=== PATIENT | female | born 1965 | race Caucasian/White ===

== ENCOUNTER 2019-01-08 06:48 | Observation (INO) ==
[2019-01-08] MEDS ORDERED: ASPIRIN PO ONE (07:20)
[2019-01-08 07:30] LABS: BASO# 0.05 X1000 (0.0-0.2); BASO% 0.4 % (0.0-0.8); EOS# 0.38 X1000 (0.0-0.7); EOS% 3.1 % (0.0-10.0); HEMATOCRIT 41.2 % (37.0-47.0); HEMOGLOBIN 13.8 g/dL (12.0-16.0); IMM GRAN# 0.04 X1000 (0.0-0.04); IMM GRAN% 0.3 % (0.0-0.5); LYMPH# 1.86 X1000 (1.2-3.4); LYMPH% 15.3 % (20.5-51.1); MCH 30.7 PG (27-31); MCHC 33.5 g/dL (33-37); MCV 91.6 FL (81-99); MONO# 1.42 X1000 (0.11-0.59); MONO% 11.7 % (1.7-9.3); MPV 11.2 FL (7.4-10.4); NEUT# 8.42 X1000 (1.4-6.5); NEUT% 69.2 % (42.2-75.2); PLT 227 X1000 (130-400); RDW 12.9 % (11.5-14.5); WBC 12.17 X1000 (4.8-10.8)
[2019-01-08 07:47] LABS: INR 0.99; PROTIME 13.6 Seconds (11.0-16.0)
[2019-01-08 07:48] LABS: PTT 32.8 Seconds (22.3-41.8)
[2019-01-08 07:50] LABS: AGAP 12; ALBUMIN 4.3 g/dL (3.5-5.0); BUN 11 mg/dL (8-22); CALCIUM 9.2 mg/dL (8.8-10.2); CHLORIDE 104 mmol/L (98-107); COSMO 284; CREATININE 0.7 mg/dL (0.5-0.9); ESTIMATED GFR > 60; GLUCOSE 126 mg/dL (70-104); POTASSIUM 4.1 mmol/L (3.5-5.1); SODIUM 142 mmol/L (136-145); TCO2 26 mmol/L (25-35); TOTAL PROTEIN 7.3 g/dL (6.3-8.3)
[2019-01-08 07:51] LABS: ALKALINE PHOSPHATASE 152 U/L (32-104); CK PROFILE 91 U/L (24-173); GOT 19 U/L (10-30); GPT 14 U/L (10-36)
--- NOTE | 2019-01-08 08:00 | Diag Imaging Result Doc PS360 ---
EXAM: CHEST-2 VIEWS INDICATION: chest pain TECHNIQUE: 2 views COMPARISON: 11/11/2018 FINDINGS: The lungs are grossly clear. There is no discrete pleural fluid collection or pneumothorax. The cardiomediastinal silhouette and central vasculature are grossly unremarkable. IMPRESSION: No evidence of acute pathology by plain radiograph. Electronically signed by Myles Hernandez 01/08/2019 7:57 AM
[2019-01-08] MEDS ORDERED: NITROGLYCERIN SL ONE (09:00)
--- NOTE | 2019-01-08 09:06 | PROVIDER DOCUMENTATION ---
HPI-Chest Pain - General Chief Complaint: Chest Pain Stated Complaint: SOB / BACK PAIN Time Seen by Provider: 01/08/19 07:22 Source: patient Allergies/Adverse Reactions: Patient Allergies Allergy/AdvReac Type Severity Reaction Status Date / Time No Known Allergies Allergy Verified 11/11/18 12:52 Home Medications: Home Medication List Medication Instructions Recorded Confirmed Last Taken Type Buspirone HCl 300 mg PO DAILY 11/11/18 01/08/19 Unknown History Meloxicam [Mobic] 15 mg PO DAILY 11/11/18 01/08/19 Unknown History Aripiprazole 1 tab PO QAM 01/08/19 01/08/19 Unknown History Buspirone HCl 7.5 mg PO BID PRN PRN 01/08/19 01/08/19 Unknown History Omeprazole 20 mg PO DAILY 01/08/19 01/08/19 Unknown History Pramipexole [Mirapex] 1 mg PO QHS 01/08/19 01/08/19 Unknown History - History of Present Illness-CP Nature of Presenting Problem: 53 y/o WF c/o lt sided CP for the last 2 days that radiates to her back, neck and Lt shoulder. Pt also notes SOB and nausea with CP. Pt is a smoker and has [facility] family hx of heart disease. Location: reports: other (lt side of chest.) Chest Pain Radiation: reports: neck, shoulders, back Quality of Pain: reports: aching, pressure Severity in ED: mild Onset/Duration: 2 days ago Timing: still present Context/Activities at Onset: reports: light activity Modifying Factors: improves with: nothing Associated Symptoms: reports: nausea (palpitations), shortness of breath Nitro Today/Relief: 0.4 mg x 1 Aspirin Treatment Today: provided by ED Prior Chest Pain/Cardiac Workup: reports: no prior cardiac workup Similar Symptoms Previously?: No Recently Seen Here or By Another Healthcare Provider: No Review of Systems - Adult - REVIEW OF SYSTEMS - ADULT Constitutional: reports: no symptoms reported, see HPI Eyes: reports: no symptoms reported, see HPI Ears, Nose, Mouth & Throat: reports: no symptoms reported, see HPI Cardiovascular: reports: see HPI, chest pain, palpitations Respiratory: reports: see HPI, shortness of breath Gastrointestinal: reports: no symptoms reported, see HPI Genitourinary: reports: no symptoms reported, see HPI Musculoskeletal: reports: no symptoms reported, see HPI Integumentary: reports: no symptoms reported, see HPI Neurological: reports: no symptoms reported, see HPI Psychiatric: reports: no symptoms reported, see HPI Endocrine: reports: no symptoms reported, see HPI Hematologic/Lymphatic: reports: no symptoms reported, see HPI Allergic/Immunologic: reports: no symptoms reported, see HPI All Other Systems: Reviewed and Negative Past History - Adult - PAST MEDICAL HISTORY-ADULT Review of Records: reports: Nursing Assessment Review, Medications Reviewed, Social history reviewed & non-contributory. - IMMUNIZATION STATUS Childhood Immunizations: See Nurse Assessment Flu Vaccine: See Nurse Assessment Physical Exam-General - PHYSICAL EXAM-ADULT Initial Vital Signs Reviewed: Yes - CONSTITUTIONAL General Appearance: alert, no apparent distress, mild distress - EYES Eyes: PERRL/EOMI - HEAD, EARS, NOSE, MOUTH & THROAT HENMT: normocephalic/atraumatic, moist mucous membranes - NECK Neck: non-tender, full range of motion, supple, normal inspection - RESPIRATORY Respiratory: chest non-tender, lungs clear, normal breath sounds, no pleuratic chest pain, no respiratory distress, no accessory muscle use - CARDIOVASCULAR Cardiovascular: normal peripheral pulses, regular rate, rhythm, no edema, no gallop, no JVD, no murmur - GASTROINTESTINAL (ABDOMEN) Abdominal Exam: normal bowel sounds, non tender, soft, no organomegaly, no pulsatile mass - LYMPHATIC Lymphatic: no adenopathy - MUSCULOSKELETAL Back Exam: normal inspection, no CVA tenderness, no vertebral tenderness Extremity: normal range of motion, non-tender, normal gait, normal inspection, no pedal edema, no calf tenderness, normal capillary refill - SKIN Integumentary: normal color, normal turgor - NEUROLOGIC Neurologic: foam caster II-XII nml as tested, grossly normal, no motor/sensory deficits - PSYCHIATRIC Psych/Mental Status: normal mood/affect, normal thought content, normal thought process, oriented x 3 - HEART Score HEART Score: History: Slightly Suspicious HEART Score: ECG: Normal HEART Score: Age: 45-65 Years HEART Score: Risk Factors for Atherosclerotic Disease: > or = 3 Risk Factors or History of Atherosclerotic Disease HEART Score: Troponin: < or = Normal Limit Total HEART Score:: 3 Progress - PLAN OF CARE/RESULTS Progress/Plan/Lab Results: Vital Signs - 8 hr 01/08/19 06:51 01/08/19 09:16 Temperature 97.5 F L Pulse Rate 106 H 97 H Respiratory Rate 20 18 Blood Pressure 132/76 108/94 O2 Sat by Pulse Oximetry 97 99 Laboratory Results - last 24 hr 01/08/19 01/08/19 01/08/19 07:10 07:10 07:10 WBC RBC Hgb Hct MCV MCH MCHC RDW Std Deviation Plt Count MPV Immature Gran % (Auto) Neut % (Auto) Lymph % (Auto) Stanley % (Auto) Eos % (Auto) Baso % (Auto) Immature Gran # (Auto) Neut # (Auto) Lymph # (Auto) Stanley # (Auto) Eos # (Auto) Baso # (Auto) PT INR PTT (Actin FS) Sodium 142 Potassium 4.1 Chloride 104 Carbon Dioxide 26 Anion Gap 12 BUN 11 Creatinine 0.7 Estimated GFR/1.73 m2 > 60 BUN/Creatinine Ratio 16 Glucose 126 H Calculated Osmolality 284 Calcium 9.2 Total Bilirubin 0.70 AST 19 ALT 14 Alkaline Phosphatase 152 H Creatine Kinase 91 Troponin T < 0.010 Cck-L-Yrltmyauczq Pept 84 Total Protein 7.3 Albumin 4.3 Globulin 3.0 Albumin/Globulin Ratio 1.0 01/08/19 01/08/19 07:10 07:10 WBC 12.17 H RBC 4.50 Hgb 13.8 Hct 41.2 MCV 91.6 MCH 30.7 MCHC 33.5 RDW Std Deviation 12.9 Plt Count 227 MPV 11.2 H Immature Gran % (Auto) 0.3 Neut % (Auto) 69.2 Lymph % (Auto) 15.3 L Stanley % (Auto) 11.7 H Eos % (Auto) 3.1 Baso % (Auto) 0.4 Immature Gran # (Auto) 0.04 Neut # (Auto) 8.42 H Lymph # (Auto) 1.86 Stanley # (Auto) 1.42 H Eos # (Auto) 0.38 Baso # (Auto) 0.05 PT 13.6 INR 0.99 PTT (Actin FS) 32.8 Sodium Potassium Chloride Carbon Dioxide Anion Gap BUN Creatinine Estimated GFR/1.73 m2 BUN/Creatinine Ratio Glucose Calculated Osmolality Calcium Total Bilirubin AST ALT Alkaline Phosphatase Creatine Kinase Troponin T Brn-B-Mittaygsowx Pept Total Protein Albumin Globulin Albumin/Globulin Ratio Orders Category Date Time Status Cardiac Monitoring DIRECTED Care 01/08/19 07:21 Active Oxygen Therapy- ED Nursing DIRECTED Care 01/08/19 07:21 Active Saline Loc NOW Care 01/08/19 07:21 Active CHEST-2 VIEWS [RAD] Stat Exams 01/08/19 07:21 Completed CBC WITH ELECTRONIC DIFF [HEME] Stat Lab 01/08/19 07:10 Completed CK PROFILE [SP CHEM] Stat Lab 01/08/19 07:10 Completed CK PROFILE [SP CHEM] Stat Lab 01/08/19 08:41 Received COMPREHENSIVE METABOLIC PANEL [CHEM] Stat Lab 01/08/19 07:10 Completed PRO B-NATRIURETIC PEPTIDE Stat Lab 01/08/19 07:10 Completed PROTIME WITH INR [COAG] Stat Lab 01/08/19 07:10 Completed PTT [COAG] Stat Lab 01/08/19 07:10 Completed TROPONIN T Stat Lab 01/08/19 07:10 Completed TROPONIN T Stat Lab 01/08/19 08:55 Received Aspirin Med 01/08/19 07:20 Discontinued 325 mg PO NOW ONE Nitroglycerin Sl [Nitroglycerin] Med 01/08/19 09:00 Discontinued 0.4 mg SL NOW ONE CP/SOB/Palp >45 yrs of Age Stat Oth 01/08/19 07:20 Ordered EKG [EKG] Stat Ther 01/08/19 07:21 Ordered EKG [EKG] Stat Ther 01/08/19 08:41 Ordered Result Diagrams: 01/08/19 07:10 01/08/19 07:10 - CONSULTS/PCP/HOSPITALIST Notification #1 *Consult/PCP/Hospitalist*: Dr Hernandez Time Discussed: 09:35 Consult Disposition: Will see in ED, Admit Departure - Departure Date of Disposition Decision: 01/08/19 Time of Disposition Decision: 09:35 DIAGNOSIS: Chest pain Disposition: ADMITTED INPATIENT 09 Certified Medical Emergency: Emergent Condition: Fair Referrals and Follow-Ups: Keith Dupree [Primary Care Provider] - - Critical Care Note This patient required my direct & personal management of CC.: No Attestation - Physician/ JEROD Attestation Patient care was provided by Advanced Practice Provider:: No The physician spent face to face time with patient:: Yes Advanced Practice Provider documentation review:: Supervising physician onsite and consulted in the evaluation and care of this patient. The physician did have a face to face encounter with the patient.
--- NOTE | 2019-01-08 09:14 | ED EKG INTERP ---
This chart was entered by Anne Marie Albert Scribe, acting as scribe for Bret Whitt MD. EKG Interpretation - EKG Time of EKG reading by physician:: 07:16 EKG Read and Signed by:: Bret Whitt EKG Interpretation (*Must complete 3 of following elements*): Normal Rate: 94 Rhythm: nsr [place]lock: normal QRS: normal WI Interval: normal ST Wave: normal - EKG # 2 Time of EKG reading by physician:: 08:55 EKG Read and Signed by:: Bret Whitt EKG Interpretation (*Must complete 3 of following elements*): Normal Rate: 90 Rhythm: nsr Gunlock: normal QRS: normal WI Interval: normal ST Wave: normal Prior EKG Comparison: unchanged from prior Attestation - Physician/ JEROD Attestation Patient care was provided by Advanced Practice Provider:: No The physician spent face to face time with patient:: Yes Advanced Practice Provider documentation review:: Supervising physician onsite and consulted in the evaluation and care of this patient. The physician did have a face to face encounter with the patient. This chart was documented by the indicated scribe, (Anne Marie Albert Scribe) and accurately reflects the services I performed and decisions made by me, Bret Whitt MD, as attested by the provider's signature.
--- NOTE | 2019-01-08 10:08 | EKG Report ---
Test Performed on : 01/08/2019 08:55:56 AM Test Reason : cp ekg #2 Blood Pressure : / mmHG Vent. Rate : 090 BPM Atrial Rate : 090 BPM P-R Int : 138 ms QRS Dur : 092 ms QT Int : 362 ms P-R-T Axes : 047 065 050 degrees QTc Int : 442 ms Normal sinus rhythm. Normal ECG When compared with ECG of 08-JAN-2019 07:16, (Unconfirmed) No significant change was found Unconfirmed Result
[2019-01-08] MEDS ORDERED: BUSPAR PO PRN (11:48)
[2019-01-08] MEDS ORDERED: ZOFRAN IV PRN (11:48)
--- NOTE | 2019-01-08 12:29 | HISTORY AND PHYSICAL ---
PRIMARY CARE PHYSICIAN: Dr. Keith Dupree. CHIEF COMPLAINT: Left-sided chest pain that radiates to her left side and back, left side of her neck and left shoulder for the last 2 days that has progressively worsened. HISTORY OF PRESENTING ILLNESS: This is a 53-year-old female who presents to [facility] ER with complaints of left-sided chest pain that radiates to her left side under her arm and around through the left side of her back, left side of her neck and left shoulder. She states that it is intermittent over the past 2 days and feels like pressure. Also, she notes some shortness of breath and nausea. She states she has never had a stress test before. Her laboratory data showed 2 sets of cardiac enzymes were negative. Her EKG showed normal sinus rhythm at 90 with a chest x-ray that was negative so she will be admitted for further evaluation and treatment. PAST MEDICAL HISTORY: Depression. GERD. PAST SURGICAL HISTORY: None. FAMILY HISTORY: Her mother's side of the family has a strong cardiac history with multiple family members on her mom's side having heart attacks and heart disease. SOCIAL HISTORY: She currently lives with family. She smokes a pack of cigarettes a day. Denies any alcohol or illicit drug use. ALLERGIES: She has no known drug allergies. HOME MEDICATIONS: She takes aripiprazole 2 mg p.o. every morning, buspirone 7.5 mg p.o. b.i.d. p.r.n. and 300 mg p.o. daily, meloxicam 15 mg p.o. daily, omeprazole 20 mg p.o. daily, Mirapex 1 mg p.o. at bedtime. LABORATORY DATA: White blood cell count of 12.17, hemoglobin 13.8, hematocrit 41.2, and platelets 227,000. PT and INR of 13.6 and 0.99. Sodium 142, potassium 4.1, chloride 104, CO2 26, BUN of 11, creatinine 0.7 and glucose 126. Cardiac enzymes x2 sets have been negative. A chest x-ray was negative EKG showed normal sinus rhythm at 90. REVIEW OF SYSTEMS: She denied any fever, chills, blurred vision, or dizziness. She is positive for left-sided chest pain that radiates to under her left arm and around to her back, her left shoulder and left side of her neck with some associated shortness of breath and nausea. Denied any abdominal pain, constipation, diarrhea, burning or hurting with urination. PHYSICAL EXAMINATION: VITAL SIGNS: On arrival, she had a temperature of 97.5 degrees, pulse 106, respirations 20, blood pressure 132/76 and saturating 97% on room air. GENERAL: This is a 53-year-old female who is sitting on the side of the bed and answers questions appropriately. HEENT: Normocephalic, atraumatic. Normal ENT inspection. Oropharynx and nares are clear. EYES: Pupils are equal, round, and reactive to light and accommodation. Extraocular movements are intact. NECK: Normal inspection. Normal range of motion. LUNGS: Clear to auscultation bilaterally with equal lung expansion and chest wall movement. HEART: Regular rate and rhythm. No murmurs, rubs, or gallops. ABDOMEN: Soft, nontender, and nondistended. Bowel sounds are present x4 quadrants. MUSCULOSKELETAL: She has 5/5 strength x4 extremities. NEUROLOGICAL: The cranial nerves 2-12 appear grossly intact. ASSESSMENT: 1. Chest pain. 2. Mild leukocytosis that is most likely reactive. 3. Tobacco abuse. 4. History of depression. PLAN: She will be admitted to the medical unit at [facility], and placed on telemetry. O2 per protocol. Healthy heart diet. We will check a lipid profile in the morning. Apply SCD's for DVT prophylaxis. Complete her serial enzymes. Continue her home medications. Place on aspirin 325 mg p.o. daily, Zofran 4 mg IV q.4 hours p.r.n. We will consult Cardiology as she will most likely need a stress test due to her family history and her complaints of chest pain at this time. Further orders after seen by attending and by wireless consultant. Dictated by JENAE Kaiser for Alfonso Ayala MD Addendum: Patient seen and examined by myself. Agree with JENAE note. It reflects my assessment and plan. Patient is being admitted to hospital for chest pain but it looks like it is muscle skeletal one. Will check troponins, see what cardiology thinks and if everything is ok will let her go tomorrow. cc: JENAE Kaiser MD Neil Yeager, MD MTDD
--- NOTE | 2019-01-08 12:44 | EKG Report ---
Test Performed on : 01/08/2019 07:16:01 AM Test Reason : chest pain Blood Pressure : / mmHG Vent. Rate : 094 BPM Atrial Rate : 094 BPM P-R Int : 138 ms QRS Dur : 094 ms QT Int : 358 ms P-R-T Axes : 057 070 049 degrees QTc Int : 447 ms Normal sinus rhythm. Normal ECG No previous ECGs available Unconfirmed Result
[2019-01-08] MEDS ORDERED: PNEUMOVAX 23 IM ONE (12:45)
--- NOTE | 2019-01-08 15:09 | CARDIOLOGY CONSULTATION ---
DATE: 01/08/2019 HISTORY OF PRESENT ILLNESS: Ms. Dorsey is a 53-year-old white female with no previous cardiac history that presents with complaints of chest pain on the left side. This pain is not worse with just walking but di worsen with movement her upper extremities against force. She has had no associated symptoms of shortness of breath or nausea. She has no previous cardiac history. No history of hypertension, diabetes. She smokes. PAST MEDICAL HISTORY: Significant for depression and reflux disease. SOCIAL HISTORY: She smokes. No alcohol or illicit drugs. FAMILY HISTORY: She has an early history of cardiac disease in her mother who had pericardiac history starting around the age of 40 in the form of coronary disease. Her mother was a smoker as well. REVIEW OF SYSTEMS: A 10 system review of systems is negative except for those things mentioned in HPI. PHYSICAL EXAMINATION: She is afebrile, heart rate 94, blood pressure 118/68.General: She is in no acute distress. HEENT: Oropharynx moist. Poor dentition. Eye examination shows pink conjunctivae, white sclerae. Neck: Shows no obvious thyromegaly or thyroid tenderness. Cardiovascular: She sounds to be in a regular rate and rhythm. She has no murmur, she has no S3. She has no lower extremity edema bilaterally. No increased work of breathing. She had no palpation tenderness in the left axillary, left chest wall area but there was reproducible pain with causing her to flex and extend her upper extremities against force. Abdomen: Soft, nontender, nondistended. She has no obvious organomegaly. Skin: Warm and dry throughout without any rashes. Neurological: She is moving all extremities well. She has no lateralizing deficits. Psychiatric: She is alert, oriented, pleasant. She has normal mood and affect. PERTINENT DATA: Chest x-ray is unremarkable for any acute abnormalities. Her EKG this morning at 8:55 showed sinus rhythm with no ischemic changes. EKG this morning at 7:16 showed sinus rhythm with no ischemic changes. Her lab data shows a white count of 12, hematocrit 41, platelet count of 227,000. Her INR is normal. Her sodium is 142, potassium 4.1, her BUN is 11, creatinine 0.7. Cardiac enzymes are negative. ProBNP is 84. Her CK is normal. ASSESSMENT: Ms. Dorsey is a 53-year-old female who presents with chest pain that has been constant and nonexertional for the last 2 days. PLAN: It seems to be highly unlikely to be anginal in nature. It seems most consistent with musculoskeletal type pain given the factors detailed above. From my standpoint, she could be discharged when stable from a primary team standpoint. Her evaluations have been unremarkable in the form of EKGs, laboratory tests and chest x-rays. cc: Rah Castellanos MD MTDD
[2019-01-08] MEDS: TYLENOL PO PRN (19:57)
[2019-01-08] MEDS ORDERED: MOBIC PO SCH (21:00)
[2019-01-08] MEDS ORDERED: MIRAPEX PO SCH (21:00)
[2019-01-08] MEDS: ABILIFY PO SCH (22:03)
[2019-01-09] MEDS: TYLENOL PO PRN (06:11)
[2019-01-09] MEDS ORDERED: PRILOSEC PO SCH ×2 (07:00)
[2019-01-09 08:13] VITALS: BP 112/62
[2019-01-09] MEDS: ABILIFY PO SCH (08:15)
[2019-01-09] MEDS ORDERED: MOBIC PO SCH (09:00)
[2019-01-09] MEDS ORDERED: ASPIRIN PO SCH (09:00)
[2019-01-09] MEDS ORDERED: WELLBUTRIN XL PO SCH (09:00)
--- NOTE | 2019-01-10 01:39 | DISCHARGE SUMMARY ---
ADMISSION DATE: 01/08/2019 DISCHARGE DATE: 01/09/2019 ADMISSION DIAGNOSES: 1. Chest pain. 2. Mild leukocytosis, most likely reactive. 3. Tobacco abuse. 4. History of depression. DISCHARGE DIAGNOSES: 1. Chest pain, resolved. 2. Leukocytosis, most likely reactive. 3. Tobacco abuse. 4. History of depression. SUMMARY OF FINDINGS: This is a 53-year-old female who presented to the ER with complaints of left- sided chest pain that radiated to her left side and under her left arm and around through to the left side of her back, left side of neck and left shoulder, intermittent over the past 2 days that felt like pressure with shortness of breath and nausea. Her cardiac workup showed cardiac enzymes x6 sets were negative. We consulted Cardiology who saw the patient and felt that this was highly unlikely to be anginal in nature. It was consistent with musculoskeletal type pain given the factors that it was reproducible and from their standpoint she could be discharged home so she is being discharged at this time. DISCHARGE MEDICATIONS: Will include aripiprazole 2 mg p.o. q.a.m., bupropion XL 300 mg p.o. daily and 7.5 mg p.o. b.i.d. p.r.n., meloxicam 15 mg p.o. at bedtime, omeprazole 20 mg p.o. daily, Mirapex 1 mg p.o. at bedtime and tramadol 50 mg p.o. q.6 hours p.r.n. FOLLOWUP: She will follow up with her primary care physician in 1 week and call their office for an appointment. TIME: A 33 minute discharge. Dictated by JENAE Kaiser for Alfonso Ayala MD Addendum: Patient seen and examined by myself. Agree with JENAE note. It reflects my assessment and plan. Patient is being discharged in stable condition to home. cc: JENAE Kasier MD Neil Yeager, MD MTDD
== END 2019-01-09 11:20 | disposition home or self-care (01) ==
LOC: P.ED 06:48 → SUATTDRO 11:23 → P.MEDSURG 11:23 → INTOOBSV 11:23 → P.MEDSURG 11:56
PROVIDERS: ATTEND Internal Medicine
CPT/HCPCS: 71020; 71046; 80053; 80061; 82550; 83721; 83880; 84484; 85025; 85610; 85730; 93005; 94761; A9270